=== PATIENT | female | born 1960 | race Caucasian/White ===

== ENCOUNTER 2021-03-20 10:19 | Emergency (ER) | payer OTHER ==
[~2021-03-20] VITALS: Ht 167.6 cm; Wt 81.8 kg
[2021-03-20] MEDS ORDERED: ONDANSETRON HCL 4 MG/2 ML VIAL IVP ONE ×2 (10:45→11:38)
[2021-03-20] MEDS ORDERED: GLUCAGON,HUMAN RECOMBINANT 1 MG VIAL IVP ONE ×2 (10:45→11:38)
[2021-03-20 10:56] LABS: BASOPHILS % (AUTO) 0.8 % (0.0-2.0); EOSINOPHILS % (AUTO) 5.5 % (1.0-6.0); HEMATOCRIT 43.6 % (36-46); HEMOGLOBIN 14.5 g/dL (12.0-16.0); LYMPHOCYTES # (AUTO) 2.2 K/uL (1.0-4.8); LYMPHOCYTES % (AUTO) 40.3 % (22.0-44.0); MEAN CORPUSCULAR HEMOGLOBIN 29.1 pg (26.0-34.0); MEAN CORPUSCULAR HGB CONC 33.3 G/dL (31.0-37.0); MEAN CORPUSCULAR VOLUME 87 fL (80-100); MONOCYTES # (AUTO) 0.4 K/uL (0.1-1.0); MONOCYTES % (AUTO) 6.9 % (2.0-9.0); NEUTROPHILS # (AUTO) 2.5 K/uL (1.8-7.7); NEUTROPHILS % (AUTO) 46.5 % (40.0-70.0); PLATELET COUNT (AUTO) 193 K/uL (150-450); RED BLOOD CELL COUNT(AUTO) 4.99 MIL/uL (4.00-5.20); RED CELL DISTRIBUTION WIDTH 14.4 % (11.5-14.5)
[2021-03-20 11:04] LABS: CALCIUM, TOTAL 9.2 mg/dL (8.8-10.5); CREATININE 1.17 mg/dL (0.60-1.30)
[2021-03-20 11:10] LABS: ALBUMIN 3.9 g/dL (3.4-5.0); BILIRUBIN,TOTAL 0.6 mg/dL (0.1-1.0); TOTAL PROTEIN, SERUM 7.5 g/dL (6.4-8.2)
[2021-03-20 11:37] LABS: COVID AG,FIA SOURCE NASOPHARYNGEAL
[2021-03-20] MEDS ORDERED: ROCURONIUM BROMIDE 10 MG/ML 5 ML VIAL IVP ONE (11:38)
[2021-03-20] MEDS ORDERED: SUCCINYLCHOLINE CHLORIDE 20 MG/ML 10 ML VIAL IVP ONE (11:38)
[2021-03-20] MEDS ORDERED: MIDAZOLAM HCL 2 MG/2 ML VIAL IVP ONE (11:38)
[2021-03-20] MEDS ORDERED: FentaNYL CITRATE PF 100 MCG/2 ML VIAL IVP ONE (11:38)
[2021-03-20] MEDS ORDERED: METOCLOPRAMIDE HCL 5 MG/ML 2 ML VIAL IVP ONE (11:38)
[2021-03-20] MEDS ORDERED: PROPOFOL 1% 20 ML VIAL IVP ONE (11:38)
[2021-03-20] MEDS ORDERED: LIDOCAINE/PF 2% 5 ML SYRINGE IVP ONE (11:38)
[2021-03-20] MEDS ORDERED: DEXAMETHASONE SOD PHOS 4 MG/ML VIAL IVP ONE (11:38)
[2021-03-20] MEDS ORDERED: EPINEPHrine 1:10,000 [1 MG/10 ML] SYRINGE ONE (11:44)
[2021-03-20] MEDS ORDERED: SODIUM CHLORIDE 0.9% 1,000 ML ONE (11:44)
[2021-03-20] MEDS ORDERED: FentaNYL CITRATE PF 100 MCG/2 ML VIAL IVP PRN (12:45)
[2021-03-20 14:00] VITALS: BP 117/56
[2021-03-20] MEDS ORDERED: OXYGEN THERAPY IH SCH (20:00)
== END 2021-03-20 14:40 | disposition home or self-care (01) ==
LOC: EMS 11:37
DX: T18.128A Food in esophagus causing other injury, initial encounter (principal); R13.10 Dysphagia, unspecified; Z20.822 Contact with and (suspected) exposure to COVID-19; X58.XXXA Exposure to other specified factors, initial encounter; Y93.89 Activity, other specified; Y92.89 Other specified places as the place of occurrence of the external cause; Y99.8 Other external cause status
CPT/HCPCS: 36415; 43239; 43247; 71045; 80053; 85025; 87426; 88305; 96374; 96375; 99291; C1769; C9803; J0330; J0690; J1100; J1610; J2250; J2405; J2704; J2765; J3010; J3490 ×2; J7030; J0171